=== PATIENT | male | born 1970 | race Caucasian/White ===

== ENCOUNTER 2019-02-26 15:55 | Emergency (ER) | payer BC ==
[~2019-02-26] VITALS: Ht 185.4 cm; Wt 97.8 kg
[2019-02-26 16:29] LABS: BASOPHILS # (AUTO) 0.04 x10^3/uL (0-0.1); BASOPHILS % (AUTO) 0 % (0-1); EOSINOPHILS # (AUTO) 0.01 x10^3/uL (0-0.4); EOSINOPHILS % (AUTO) 0 % (1-7); LYMPHOCYTES # (AUTO) 1.45 x10^3/uL (1-3.4); LYMPHOCYTES % (AUTO) 16 % (22-44); MD NO; MEAN CORPUSCULAR HEMOGLOBIN 30.8 pg (27.5-34.5); MEAN CORPUSCULAR HGB CONC 34.2 g/dL (33.2-36.2); MEAN CORPUSCULAR VOLUME 90.1 fL (81-97); MEAN PLATELET VOLUME 10.1 fL (7.4-10.4); MONOCYTES # (AUTO) 0.56 x10^3/uL (0.2-0.8); MONOCYTES % (AUTO) 6 % (2-9); NEUTROPHILS # (AUTO) 7.36 x10^3/uL (1.8-6.8); NEUTROPHILS % (AUTO) 78 % (42-75); PLATELET COUNT 272 x10^3/uL (130-400); RED BLOOD COUNT 5.46 x10^6/uL (4.38-5.82); RED CELL DISTRIBUTION WIDTH 14.3 % (9.4-14.8)
[2019-02-26] MEDS ORDERED: ASPIRIN 81 MG TABLET CHEW PO ONE (16:30)
[2019-02-26] MEDS ORDERED: ASPIRIN 81 MG TABLET EC ONE (16:33)
[2019-02-26] MEDS ORDERED: ASPIRIN 81 MG TABLET CHEW ONE (16:37)
--- NOTE | 2019-02-26 16:39 | NUR ---
PT. IS A & O X 4 WITH C/O DIZZINESS X 2 DAYS. PT. WAS MEDICATED ORDERED. PT. HAS THE CP MONITOR IN PLACE. PT. IS PINK,WARM AND DRY. LUNGS ARE CTA. MM ARE PINK AND MOIST WITH PULSES +2 THROUGHOUT. PT.'S ABD. IS SOFT AND FLAT WITH BS + X 4 QUADS. PT.'S LABS WERE DRAWN AND SENT. REPORT TO [facility].
[2019-02-26 16:40] LABS: ALBUMIN 4.4 g/dL (3.4-5.0); ANION GAP 4 mmol/L (5-15); CALCIUM 9.3 mg/dL (8.5-10.1); CHLORIDE 110 mmol/L (98-107); CREATININE 0.97 mg/dL (0.7-1.3)
[2019-02-26 16:43] VITALS: BP 191/112
[2019-02-26 16:44] LABS: TROPONIN I < 0.015 ng/mL (0.000-0.045)
[2019-02-26] MEDS ORDERED: MECLIZINE CHEWABLE 25 MG TAB ONE (16:53)
[2019-02-26] MEDS ORDERED: MECLIZINE CHEWABLE 25 MG TAB PO ONE (17:00)
--- NOTE | 2019-02-26 17:01 | NUR ---
PT MEDICATED PER ORDER. CALL LIGHT IN REACH AND PT ENCOURAGED TO CALL WITH ANY CONCERNS.
== END 2019-02-26 18:02 | disposition home or self-care (01) ==
LOC: ED 17:50
DX: R42 Dizziness and giddiness (principal); F41.1 Generalized anxiety disorder
CPT/HCPCS: 36415; 71046; 80048; 82040; 84484; 85025; 93005; 99284